=== PATIENT | male | born 1965 | race African-American/Black ===

== ENCOUNTER 2018-04-07 03:43 | Inpatient (IN) | payer BC ==
[2018-04-07] MEDS ORDERED: BISACODYL (EC) 5 MG TAB PO (05:00)
[2018-04-07] MEDS ORDERED: ACETAMINOPHEN 325 MG TAB PO (05:00)
[2018-04-07] MEDS ORDERED: ONDANSETRON 4 MG INJ IV (05:00)
[2018-04-07] MEDS ORDERED: HYDROCODONE/APAP (5/325) TAB PO (05:00)
[2018-04-07] MEDS ORDERED: DOCUSATE SODIUM 100 MG CAP PO (05:00)
[2018-04-07] MEDS ORDERED: NACL 0.9% 3 ML SYG IV (05:00)
[2018-04-07] MEDS: SOD CHLORIDE 0.9% 1,000 ML IV ×4 (05:03→20:21)
[2018-04-07 05:55] LABS: ADD MAN DIFF? NO
[2018-04-07 06:04] LABS: WHITE BLOOD COUNT 5.6 10^3/ul (4.8-10.8)
[2018-04-07 06:04] LABS: BASOPHIL # 0.1 10^3/ul (0.0-0.1); BASOPHILS % 0.9 % (0.0-2.0); EOSINOPHILS # 0.2 10^3/ul (0.0-0.5); EOSINOPHILS % 3.9 % (0.0-7.0); HEMATOCRIT 39.5 % (42.0-52.0); HEMOGLOBIN 12.7 g/dl (14.0-18.0); LYMPHOCYTES # 1.5 10^3/ul (0.8-2.9); LYMPHOCYTES % 26.9 % (15.0-51.0); MEAN CORPUSCULAR HGB CONC 32.2 g/dl (32.0-37.0); MEAN CORPUSCULAR VOLUME 93.4 fl (82.0-101.0); MONOCYTE # 0.6 10^3/ul (0.3-0.9); MONOCYTES % 9.9 % (0.0-11.0); NEUTROPHIL # 3.2 10^3/ul (1.6-7.5); NEUTROPHILS % 58.2 % (39.0-77.0); PLATELET COUNT 266 10^3/UL (140-415); RED BLOOD COUNT 4.23 10^6/ul (4.70-6.10); RED CELL DISTRIBUTION WIDTH 12.9 % (11.5-14.5)
[2018-04-07 07:03] LABS: ALANINE AMINOTRANSFERASE 180 IU/L (13-69); ALBUMIN 3.4 g/dl (3.3-4.9); ALBUMIN/GLOBULIN RATIO 1.17; ALKALINE PHOSPHATASE 38 IU/L (42-121); ANION GAP 9 (8-16); BILIRUBIN,INDIRECT 0.5 mg/dl (0-1.1); BILIRUBIN,TOTAL 0.5 mg/dl (0.2-1.3); BLOOD UREA NITROGEN 19 mg/dl (7-20); CALCIUM 8.3 mg/dl (8.4-10.2); CARBON DIOXIDE 24 mmol/L (21-31); CHLORIDE 112 mmol/L (97-110); CREATININE 1.01 mg/dl (0.61-1.24); GLUCOSE 100 mg/dl (70-220); POTASSIUM 4.2 mmol/L (3.5-5.1); SODIUM 141 mmol/L (135-144); TOTAL PROTEIN 6.3 g/dl (6.1-8.1)
[2018-04-07 07:43] LABS: ASPARTATE AMINO TRANSFERASE 921 IU/L (15-46)
[2018-04-07 08:29] LABS: MAGNESIUM 2.3 mg/dl (1.7-2.5)
[2018-04-07 10:33] LABS: CREATINE KINASE 55611 IU/L (23-200)
[2018-04-07 12:17] LABS: HEMOGLOBIN A1C 5.1 % (0-5.9)
[2018-04-07 14:39] LABS: CREATINE KINASE 47810 IU/L (23-200)
[2018-04-07 15:37] LABS: ADD UMIC YES; UR ASCORBIC ACID NEGATIVE (NEGATIVE); UR BILIRUBIN (Dip) NEGATIVE (NEGATIVE); UR BLOOD (Dip) 1+ mg/dL (NEGATIVE); UR CLARITY CLEAR (CLEAR); UR COLOR STRAW (YELLOW); UR GLUCOSE (Dip) NEGATIVE (NEGATIVE); UR KETONES (Dip) NEGATIVE (NEGATIVE); UR LEUKOCYTE ESTERASE (Dip) NEGATIVE Leu/ul (NEGATIVE); UR NITRITE (Dip) NEGATIVE (NEGATIVE); UR RBC 0 /HPF (0-5); UR SPECIFIC GRAVITY (Dip) 1.013 (1.003-1.030); UR TOTAL PROTEIN (Dip) NEGATIVE (NEGATIVE); UR UROBILINOGEN (Dip) NEGATIVE (NEGATIVE); UR WBC 1 /HPF (0-5)
[2018-04-07 23:09] LABS: CREATINE KINASE 39664 IU/L (23-200)
[2018-04-08] MEDS: SOD CHLORIDE 0.9% 1,000 ML IV ×2 (01:21→06:22)
[2018-04-08 08:07] LABS: CREATINE KINASE 27360 IU/L (23-200)
[2018-04-08 08:27] LABS: ALANINE AMINOTRANSFERASE 158 IU/L (13-69); ALBUMIN 3.2 g/dl (3.3-4.9); ALBUMIN/GLOBULIN RATIO 1.18; ALKALINE PHOSPHATASE 43 IU/L (42-121); ANION GAP 10 (8-16); ASPARTATE AMINO TRANSFERASE 663 IU/L (15-46); BILIRUBIN,INDIRECT 0.1 mg/dl (0-1.1); BILIRUBIN,TOTAL 0.1 mg/dl (0.2-1.3); BLOOD UREA NITROGEN 13 mg/dl (7-20); CALCIUM 8.7 mg/dl (8.4-10.2); CARBON DIOXIDE 23 mmol/L (21-31); CHLORIDE 112 mmol/L (97-110); CREATININE 0.85 mg/dl (0.61-1.24); GLUCOSE 88 mg/dl (70-220); POTASSIUM 4.1 mmol/L (3.5-5.1); SODIUM 141 mmol/L (135-144); TOTAL PROTEIN 5.9 g/dl (6.1-8.1)
== END 2018-04-08 09:56 | disposition home or self-care (01) | DRG 558 ==
LOC: 6WM 03:43
DX: M62.82 Rhabdomyolysis (principal); N17.9 Acute kidney failure, unspecified
CPT/HCPCS: 80053; 81001; 82550; 83036; 83735; 84443; 85025